=== PATIENT | male | born 1960 | race African-American/Black ===

== ENCOUNTER 2018-05-25 22:50 | Inpatient (IN) | payer MEDICARE, MEDICAID ==
[~2018-05-25] VITALS: Ht 174 cm; Wt 106.6 kg
[2018-05-26] MEDS ORDERED: LORAZEPAM 0.5 MG TABLET PO PRN (07:30)
[2018-05-26] MEDS ORDERED: MAG HYDROX/AL HYDROX/SIMETH 30 ML UDC PO PRN (07:30)
[2018-05-26] MEDS ORDERED: MAGNESIUM HYDROXIDE 30 ML UDC PO PRN (07:30)
[2018-05-26 08:00] VITALS: BP 112/79
[2018-05-26] MEDS: ACETAMINOPHEN 325 MG TABLET PO PRN ×2 (08:52→20:31)
--- NOTE | 2018-05-26 08:52 | NUR ---
NURSING NOTE: PT C/O PAIN ON HIS BACK AND LEFT LEG SCIATIC NERVE PAIN, 8/10 PAIN. ADMINISTERED TYLENOL 650MG PO PER MD ORDER. WILL CONTINUE TO MONITOR.
[2018-05-26 09:08] LABS: ALBUMIN 3.9 g/dL (3.4-5.0); BILIRUBIN,TOTAL 0.6 mg/dL (0.2-1.0); CALCIUM, SERUM 8.3 mg/dL (8.5-10.1); CREATININE 0.8 mg/dL (0.6-1.3); POTASSIUM 4.1 mmol/L (3.5-5.1); TOTAL PROTEIN, SERUM 7.8 g/dL (6.4-8.2)
--- NOTE | 2018-05-26 09:30 | NUR ---
NURSING ADMISSION NOTE: PT WAS ADMITTED TODAY FROM [facility] ON 5150 DTS. PER HOLD, "UPON FACE TO FACE CONTACT PT REPORTED FEELING SAD, HELPLESS, HOPELESS, AND THAT HIS LIFE IS NOT WORTH LIVING. PT STATED 'I JUST DON'T CARE ABOUT LIVING ANYMORE I WAS JUST THINKING ABOUT OVERDOSING ON PILLS'/ DUE TO PT'S PRESENTATION AND ENDORSEMENT OF SI WITH A PLAN PT MEETS CRITERIA FOR 5150 DTS. PT ALSO REPORTED HIS SI HAS BEEN FOR THE PAST TWO DAYS AND THAT HE WAS HAVING SI TODAY". PT IS A&OX4, CALM, COOPERATIVE, PLEASANT, FLAT AFFECT, DEPRESSED MOOD, ISOLATIVE, GUARDED, DENIES SI/HI AT THIS TIME. VS: 112/79, 90, 20, 94%RA, 98.6, 7/10 PAIN TO LOWER AND UPPER BACK. PT WAS MEDICATED WITH TYLENOL 650MG PO PER MD ORDER. SKIN INTACT. PT WAS COOPERATIVE WITH ADMISSION PROCESS AND HAS SIGNED ALL PAPERWORK. DR. BRINK AND DR. ALVAREZ HAVE BEEN NOTIFIED OF PTS ADMISSION AND ORDERS WERE OBTAINED. WILL CONTINUE TO MONITOR Q15 MINS FOR SAFETY AND BEHAVIOR.
[2018-05-26] MEDS ORDERED: SIMV20TA6 PO (10:06)
[2018-05-26] MEDS ORDERED: CARI350T27 PO (10:06)
[2018-05-26] MEDS ORDERED: BENZ1TAB7 PO ×2 (10:06)
[2018-05-26] MEDS ORDERED: CLOZ100T32 PO (10:06)
[2018-05-26] MEDS ORDERED: CLOZ25TA4 PO (10:06)
[2018-05-26] MEDS ORDERED: TRAM50TA2 PO (10:09)
[2018-05-26] MEDS ORDERED: FLUO-119 PO (10:09)
[2018-05-26] MEDS ORDERED: RIVA10TA PO (10:09)
[2018-05-26] MEDS ORDERED: BACL10TA PO (10:09)
--- NOTE | 2018-05-26 11:59 | NUR ---
RICHA called the pt's mother, Jolene ([phone]), and attempted to leave a voicemail for her but the pt's mother's mailbox was full. RICHA will attempt to make another call at another time.
--- NOTE | 2018-05-26 12:39 | NUR ---
Initial Discharge Plan: Pt currently resides at a home located at [address] [place] [address]; ([phone]) with his mother. Per pt, he would like to return home once he is stable. SW will work with the pt and the MD regarding appropriate discharge planning. SW will form a safe and proper discharge.
[2018-05-26] MEDS: CARISOPRODOL 350 MG TABLET PO SCH ×2 (13:18→17:06)
[2018-05-26 16:00] VITALS: BP 160/79
[2018-05-26] MEDS: SIMVASTATIN 20 MG TABLET PO SCH (17:06)
[2018-05-26] MEDS: RIVAROXABAN 10 MG TABLET PO SCH (17:07)
[2018-05-26 17:46] LABS: BASOPHILS # (AUTO) 0.1 /CMM (0.0-0.2); BASOPHILS % (AUTO) 2.1 % (0.0-2.0); HEMATOCRIT 46 % (39-51); HEMOGLOBIN 14.6 g/dL (13.5-17.5); LYMPHOCYTES # (AUTO) 1.5 /CMM (0.8-4.8); LYMPHOCYTES % (AUTO) 23.1 % (20.0-44.0); MEAN CORPUSCULAR HGB CONC 32 g/dl (31.0-36.0); MEAN CORPUSCULAR VOLUME 84 fL (80-96); MONOCYTES # (AUTO) 0.5 /CMM (0.1-1.30); MONOCYTES % (AUTO) 7.3 % (2.0-12.0); NEUTROPHILS # (AUTO) 4.3 /CMM (1.8-8.9); NEUTROPHILS % (AUTO) 64.5 % (43.0-81.0); PLATELET COUNT (AUTO) 191 /CMM (150-450); RED BLOOD CELL COUNT(AUTO) 5.48 MIL/uL (4.5-6.0); WHITE BLOOD COUNT (AUTO) 6.6 K/uL (4.3-11.0)
--- NOTE | 2018-05-26 18:04 | NUR ---
NURSING NOTE: PT IN THE HALLWAY WALKING WITH HIS WALKER, PT ALL OF A SUDDEN LOST HIS BALANCE AND FELL TO THE FLOOR BUT DID NOT HIT HIS HEAD. IT SEEMED IF HIS LEFT LEG GAVE OUT AND PT COULD NOT HOLD HIMSELF UP. VS:116/73, 112, 18, 100%RA, NO C/O PAIN FROM THE FALL. WILL CONTINUE TO MONITOR FOR SAFETY.
--- NOTE | 2018-05-26 18:30 | NUR ---
NURSING NOTE: ORTHOSTATICS DONE: LAYIN/43, 109; SITTING 110/80, 87; STANDING 110/87, 56. DR. ALVAREZ HAS BEEN NOTIFIED OF PTS FALL AND WILL ADJUST PT'S MEDICATION. PT'S MOTHER KALEN HAS BEEN NOTIFIED OF PT'S FALL WELL. INCIDENT REPORT WAS DONE AND NURSING [place] CLERK WAS NOTIFIED WELL. PT IS CURRENTLY LAYING IN HIS BED, STATING "I'M DOING OKAY, NO PAIN FROM THE FALL" PER PT HE HAS HAD SIMILAR EPISODES WHILE AT HOME. WILL CONTINUE TO MONITOR FOR SAFETY.
[2018-05-26 20:29] VITALS: BP 109/75
[2018-05-26] MEDS ORDERED: CLOZAPINE 100 MG TABLET ONE (21:39)
--- NOTE | 2018-05-26 21:39 | NUR ---
GPS RN NOTES: PT. NIGHT MED CLOZARIL DOSE WAS 250 MG AND GPS HAS NOT FULL DOSE IN STOCK , THEN CLOZARIL 200 MG TOOK FROM MED CALVIN 3 WITH CHARGE NURSE ANGELA , AND CLOZARIL 100 MG FROM GPS AND 50 MG WASTE , PT. MEDS GIVEN ON TIME.
[2018-05-26] MEDS: CLOZAPINE 100 MG TABLET PO SCH (21:51)
[2018-05-26] MEDS: BENZTROPINE MESYLATE (1 MG) 1 MG TABLET PO SCH (21:51)
[2018-05-27 07:20] LABS: BASOPHILS % (AUTO) 0.6 % (0.0-2.0); EOSINOPHILS % (AUTO) 2.6 % (0.0-6.0); HEMATOCRIT 41 % (39-51); HEMOGLOBIN 13.2 g/dL (13.5-17.5); LYMPHOCYTES # (AUTO) 1.4 /CMM (0.8-4.8); LYMPHOCYTES % (AUTO) 26.1 % (20.0-44.0); MEAN CORPUSCULAR HGB CONC 32 g/dl (31.0-36.0); MEAN CORPUSCULAR VOLUME 82 fL (80-96); MONOCYTES # (AUTO) 0.5 /CMM (0.1-1.30); NEUTROPHILS # (AUTO) 3.4 /CMM (1.8-8.9); NEUTROPHILS % (AUTO) 61.7 % (43.0-81.0); PLATELET COUNT (AUTO) 179 /CMM (150-450); RED BLOOD CELL COUNT(AUTO) 5.03 MIL/uL (4.5-6.0); WHITE BLOOD COUNT (AUTO) 5.5 K/uL (4.3-11.0)
[2018-05-27 07:52] LABS: CALCIUM, SERUM 8.6 mg/dL (8.5-10.1); CREATININE 0.8 mg/dL (0.6-1.3); MAGNESIUM 2.3 mg/dL (1.8-2.4); POTASSIUM 4.1 mmol/L (3.5-5.1)
[2018-05-27 08:00] VITALS: BP 115/76
[2018-05-27 08:04] LABS: THYROID STIMULATING HORMONE 0.682 uIU/mL (0.358-3.74)
[2018-05-27] MEDS: BENZTROPINE MESYLATE (1 MG) 1 MG TABLET PO SCH ×2 (08:59→21:02)
[2018-05-27] MEDS: BACLOFEN (10 MG) 10 MG TABLET PO SCH (08:59)
[2018-05-27] MEDS: FLUOXETINE HCL 20 MG CAPSULE PO SCH (08:59)
[2018-05-27] MEDS: CLOZAPINE 100 MG TABLET PO SCH ×2 (09:13→21:02)
[2018-05-27] MEDS: CARISOPRODOL 350 MG TABLET PO PRN ×2 (13:56→20:39)
--- NOTE | 2018-05-27 14:02 | NUR ---
GPS/RN-NOTES PATIENT REQUESTING SOMA FOR MUSCLE PAIN. SOMA 350MG P.O GIVEN PRN ORDER.
--- NOTE | 2018-05-27 14:50 | NUR ---
Group note: Pt attended a group session on 05/27/18 at 11AM discussing the topic of what their goals are for when they are in the hospital and once they are discharged. S: Pt stated, I want to go home and give life another good try. I want to be able to get out of my head and learn to seek more support when I start to feel myself go down. O: Pt was present during the group session and was cooperative. Pt appeared to be in a euthymic mood and presented with a calm affect. Pt maintained appropriate eye contact and his tone of voice appeared to be very calm and pleasant throughout the group. A: Pt understood that he needs to talk to his mother and lean on her for support because she has always been there for him. He realized that he cannot keep things to himself because then he loses control and ends up in the hospital. P: Pt will continue milieu treatment and medication stabilization.
[2018-05-27 16:00] VITALS: BP 117/78
[2018-05-27] MEDS: RIVAROXABAN 10 MG TABLET PO SCH (16:14)
[2018-05-27] MEDS: SIMVASTATIN 20 MG TABLET PO SCH (17:57)
[2018-05-27 20:21] VITALS: BP 105/62
--- NOTE | 2018-05-27 20:40 | NUR ---
C/O BACK PAIN, SOME 350 MG TAB PO GIVEN.
[2018-05-27] MEDS: TEMAZEPAM 7.5 MG CAPSULE PO PRN (20:41)
--- NOTE | 2018-05-27 20:42 | NUR ---
RESTORIL 7.5 MG CAP PO GIVEN FOR SLEEP.
[2018-05-28 08:00] VITALS: BP 100/59
[2018-05-28] MEDS: CLOZAPINE 100 MG TABLET PO SCH ×2 (08:33→20:43)
[2018-05-28] MEDS: BACLOFEN (10 MG) 10 MG TABLET PO SCH (08:33)
[2018-05-28] MEDS: FLUOXETINE HCL 20 MG CAPSULE PO SCH (08:33)
[2018-05-28] MEDS: BENZTROPINE MESYLATE (1 MG) 1 MG TABLET PO SCH ×2 (08:33→20:43)
[2018-05-28] MEDS: CARISOPRODOL 350 MG TABLET PO PRN (13:40)
--- NOTE | 2018-05-28 13:42 | NUR ---
GPS/RN-NOTES PATIENT C/O MUSCLE SPASM AND REQUESTING SOMA . SOMA 350MG P.O GIVEN PRN ORDER.
--- NOTE | 2018-05-28 15:44 | NUR ---
RICHA called the pt's mother, Jolene ([phone]), and spoke to her about the pt's initial discharge plan and discussed his recent state and the medications that he is on. RICHA stated that she would assist in finding a therapist for the pt. RICHA also informed her that she keep her updated in terms of the discharge.
--- NOTE | 2018-05-28 15:57 | NUR ---
SW spoke to the pt and he stated that he has been hearing voices in his head and the left side of his body is in pain. SW provided him with some coping mechanisms as well as refiguring his thoughts. SW asked him to remain in the present and counter what the voices are saying in his head out loud. Then the SW informed his nurse that he is in pain and she provided him with a medication.
[2018-05-28 16:00] VITALS: BP 152/85
[2018-05-28] MEDS: RIVAROXABAN 10 MG TABLET PO SCH (17:03)
[2018-05-28] MEDS: SIMVASTATIN 20 MG TABLET PO SCH (17:03)
[2018-05-28 20:00] VITALS: BP 123/67
[2018-05-28] MEDS: TEMAZEPAM 7.5 MG CAPSULE PO PRN (20:40)
--- NOTE | 2018-05-28 20:41 | NUR ---
TEMAZEPAM 7.5 MG CAP PO GIVEN FOR SLEEP PER HIS REQUEST. REQUESTED AERLY FOR HIS NIGHT MEDS AND GIVEN.
[2018-05-29 08:00] VITALS: BP 108/60
[2018-05-29] MEDS: CLOZAPINE 100 MG TABLET PO SCH ×2 (09:59→21:02)
[2018-05-29] MEDS: BACLOFEN (10 MG) 10 MG TABLET PO SCH (09:59)
[2018-05-29] MEDS: BENZTROPINE MESYLATE (1 MG) 1 MG TABLET PO SCH ×2 (09:59→21:02)
[2018-05-29] MEDS: FLUOXETINE HCL 20 MG CAPSULE PO SCH (09:59)
[2018-05-29] MEDS: CARISOPRODOL 350 MG TABLET PO PRN (13:24)
--- NOTE | 2018-05-29 13:26 | NUR ---
GPS/RN-NOTES PATIENT C/O MUSCLE SPASM 10/10 AND REQUESTING SOMA . SOMA 350MG P.O GIVEN PRN ORDER.
[2018-05-29 16:00] VITALS: BP 116/69
[2018-05-29] MEDS: SIMVASTATIN 20 MG TABLET PO SCH (17:02)
[2018-05-29] MEDS: RIVAROXABAN 10 MG TABLET PO SCH (17:03)
[2018-05-29 20:00] VITALS: BP 129/72
[2018-05-29] MEDS: TEMAZEPAM 7.5 MG CAPSULE PO PRN (20:39)
--- NOTE | 2018-05-29 20:40 | NUR ---
TEMAZEPAM 7.5 MG CAP PO GIVEN FOR SLEEP PER HIS REQUEST.
[2018-05-30 08:00] VITALS: BP 111/77
[2018-05-30] MEDS: BENZTROPINE MESYLATE (1 MG) 1 MG TABLET PO SCH ×2 (08:14→21:25)
[2018-05-30] MEDS: BACLOFEN (10 MG) 10 MG TABLET PO SCH (08:14)
[2018-05-30] MEDS: FLUOXETINE HCL 20 MG CAPSULE PO SCH (08:14)
[2018-05-30] MEDS: CLOZAPINE 100 MG TABLET PO SCH ×2 (08:15→21:26)
[2018-05-30 16:00] VITALS: BP 122/65
[2018-05-30] MEDS: RIVAROXABAN 10 MG TABLET PO SCH (17:06)
[2018-05-30] MEDS: SIMVASTATIN 20 MG TABLET PO SCH (17:06)
[2018-05-30] MEDS: ACETAMINOPHEN 325 MG TABLET PO PRN (19:20)
--- NOTE | 2018-05-30 19:20 | NUR ---
C/O PAIN ON BOTH SHOULDERS, TYLENOL 650 MG TAB PO GIVEN.
[2018-05-30 20:00] VITALS: BP 114/66
[2018-05-30] MEDS: TEMAZEPAM 7.5 MG CAPSULE PO PRN (21:26)
[2018-05-31 08:00] VITALS: BP 142/76
[2018-05-31] MEDS: BACLOFEN (10 MG) 10 MG TABLET PO SCH (08:38)
[2018-05-31] MEDS: BENZTROPINE MESYLATE (1 MG) 1 MG TABLET PO SCH ×2 (08:38→22:30)
[2018-05-31] MEDS: CLOZAPINE 100 MG TABLET PO SCH ×2 (08:38→22:29)
[2018-05-31] MEDS: FLUOXETINE HCL 20 MG CAPSULE PO SCH (08:38)
[2018-05-31] MEDS: HYDROCODONE/APAP 5/325MG 1 EACH TABLET PO PRN (14:45)
--- NOTE | 2018-05-31 14:45 | NUR ---
GPS RN NOTE: PT COMPLAINING OF LOWER BACK PAIN 09/09 [facility] [place] NOTIFIED WITH T.O. ORDER NORCO ORDER PLACED ,CARED OUT AND GIVEN TO PT.WILL CONTINUE MONITORING FOR SAFETY AND BEHAVIOR.
[2018-05-31 16:00] VITALS: BP 114/70
[2018-05-31] MEDS: SIMVASTATIN 20 MG TABLET PO SCH (17:02)
[2018-05-31] MEDS: RIVAROXABAN 10 MG TABLET PO SCH (17:02)
--- NOTE | 2018-05-31 19:30 | NUR ---
GPS RN NOTE, RECEIVED PATIENT AWAKE AND IN ROOM NO S/S OR COMPLAINTS OF PAIN AT THIS TIME. PATIENT IS DISPLAYING NO S/S OF APPARENT DISTRESS AT THIS TIME. PATIENT BREATHING IS UNLABORED WITH EQUAL RISE AND FALL OF THE CHEST. PATIENT IS ALERT AND ORIENTED X 3 ON ROOM AIR WITH A SPO2 OF 97%. PATIENT IS MED COMPLIANT, DISORGANIZED, ANXIOUS, LABILE, COOPERATIVE, AND NEEDS REORIENTATION. PATIENT DENIES SUICIDE AND HOMICIDAL IDEATIONS AT THIS TIME. PATIENT ASSISTED WITH TURNING AND REPOSITIONING Q2HR AND PRN FOR COMFORT AND CIRCULATION. PATIENT HAS NO NEEDS AT THIS TIME. PATIENT EDUCATED ON THE USE OF THE CALL JAMES. PATIENT BED SIDE RAILS ARE UP X 2 FOR SAFETY, BED IS LOCKED AND LOW. WILL CONTINUE TO MONITOR AND MAINTAIN SAFETY Q15 MIN WITH THE HELP OF STAFF.
[2018-05-31 21:17] VITALS: BP 116/63
[2018-05-31] MEDS ORDERED: CLOZAPINE 100 MG TABLET ONE (22:26)
[2018-06-01] MEDS: HYDROCODONE/APAP 5/325MG 1 EACH TABLET PO PRN ×3 (06:31→21:54)
--- NOTE | 2018-06-01 06:33 | NUR ---
GPS RN NOTE, PATIENT HAS COMPLAINT OF UPPER AND LOWER BACK PAIN AT 7 OUT 10 ON THE PAIN SCALE AND IS REQUESTING NORCO AT THIS TIME. PATIENT VITAL SIGNS ARE STABLE. GAVE NORCO 5-325 1 TAB PO Q6 HR PRN ORDERED. WILL REASSESS FOR PAIN AND I WILL CONTINUE TO MONITOR THIS PATIENT.
[2018-06-01 08:00] VITALS: BP 115/66
[2018-06-01] MEDS: BACLOFEN (10 MG) 10 MG TABLET PO SCH (08:51)
[2018-06-01] MEDS: FLUOXETINE HCL 20 MG CAPSULE PO SCH (08:51)
[2018-06-01] MEDS: BENZTROPINE MESYLATE (1 MG) 1 MG TABLET PO SCH ×2 (08:51→21:59)
[2018-06-01] MEDS: CLOZAPINE 100 MG TABLET PO SCH ×2 (08:51→22:03)
--- NOTE | 2018-06-01 15:08 | NUR ---
GPS RN NOTE: PT COMPLAINING OF LOWER BACK PAIN NORCO 5/325 GIVEN .WILL CONTINUE MONITORING FOR SAFETY AND BEHAVIOR.
[2018-06-01 16:00] VITALS: BP 136/73
[2018-06-01] MEDS: RIVAROXABAN 10 MG TABLET PO SCH (16:46)
[2018-06-01] MEDS: SIMVASTATIN 20 MG TABLET PO SCH (17:09)
[2018-06-01 20:52] VITALS: BP 123/63
--- NOTE | 2018-06-01 21:34 | NUR ---
OFFERED SLEEPING PILL, PATIENT REFUSED.
[2018-06-01] MEDS: TEMAZEPAM 7.5 MG CAPSULE PO PRN (21:55)
--- NOTE | 2018-06-02 02:00 | NUR ---
GPS RN NOTE RECEIVED PATIENT SLEEPING AND IN ROOM. PATIENT IS DISPLAYING NO S/S OF APPARENT DISTRESS AT THIS TIME. PATIENT BREATHING IS UNLABORED WITH SYMMETRICAL RISE AND FALL OF THE CHEST.PATIENT ASSISTED WITH TURNING AND REPOSITIONING Q2HR AND PRN FOR COMFORT AND CIRCULATION. PATIENT HAS NO NEEDS AT THIS TIME. PATIENT EDUCATED ON THE USE OF THE CALL JAMES. PATIENT BED SIDE RAILS ARE UP X 2 FOR SAFETY, BED IS LOCKED AND LOW. WILL CONTINUE TO MONITOR AND MAINTAIN SAFETY Q15 MIN WITH THE HELP OF STAFF.
[2018-06-02 08:00] VITALS: BP 115/59
[2018-06-02] MEDS: FLUOXETINE HCL 20 MG CAPSULE PO SCH (08:45)
[2018-06-02] MEDS: BENZTROPINE MESYLATE (1 MG) 1 MG TABLET PO SCH ×2 (08:45→22:43)
[2018-06-02] MEDS: HYDROCODONE/APAP 5/325MG 1 EACH TABLET PO PRN ×2 (08:46→21:39)
[2018-06-02] MEDS: CLOZAPINE 100 MG TABLET PO SCH ×2 (08:46→22:44)
[2018-06-02] MEDS: BACLOFEN (10 MG) 10 MG TABLET PO SCH (08:46)
--- NOTE | 2018-06-02 08:46 | NUR ---
NURSING NOTE: PT C/O BACK AND SHOULDER PAIN, 8/10 PAIN. REQUESTING PAIN MEDICATION. ADMINISTERED NORCO 5/325MG PO PER MD ORDER. VS STABLE. WILL CONTINUE TO MONITOR.
[2018-06-02 09:56] LABS: BASOPHILS # (AUTO) 0.1 /CMM (0.0-0.2); EOSINOPHILS % (AUTO) 1.7 % (0.0-6.0); HEMATOCRIT 43 % (39-51); HEMOGLOBIN 13.4 g/dL (13.5-17.5); LYMPHOCYTES # (AUTO) 1.3 /CMM (0.8-4.8); MEAN CORPUSCULAR HGB CONC 32 g/dl (31.0-36.0); MEAN CORPUSCULAR VOLUME 83 fL (80-96); MONOCYTES # (AUTO) 0.5 /CMM (0.1-1.30); MONOCYTES % (AUTO) 6.5 % (2.0-12.0); NEUTROPHILS # (AUTO) 5.4 /CMM (1.8-8.9); NEUTROPHILS % (AUTO) 72.8 % (43.0-81.0); PLATELET COUNT (AUTO) 180 /CMM (150-450); RED BLOOD CELL COUNT(AUTO) 5.15 MIL/uL (4.5-6.0); WHITE BLOOD COUNT (AUTO) 7.4 K/uL (4.3-11.0)
[2018-06-02 10:10] LABS: CALCIUM, SERUM 8.3 mg/dL (8.5-10.1); CREATININE 0.7 mg/dL (0.6-1.3); POTASSIUM 4.2 mmol/L (3.5-5.1)
[2018-06-02 13:36] LABS: APPEARANCE,URINE CLEAR (CLEAR); BILIRUBIN,URINE NEGATIVE (NEGATIVE); BLOOD, URINE TRACE-INTA Ery/uL (NEGATIVE); COLOR,URINE YELLOW (YELLOW); KETONES,URINE NEGATIVE (NEGATIVE); LEUKOCYTE ESTERASE ,URINE NEGATIVE (NEGATIVE); NITRITE, URINE NEGATIVE (NEGATIVE); PROTEIN,URINE NEGATIVE (NEGATIVE); UGLUCOSE NEGATIVE (NEGATIVE); UROBILINOGEN,URINE 0.2 EU/dL (0.2)
[2018-06-02 13:42] LABS: WBC,URINE 0-2 /HPF (0-3)
[2018-06-02 13:43] LABS: BACTERIA,URINE Rare /HPF (None Seen); SQUAMOUS EPITHELIAL CELL,UR Rare /HPF (None Seen)
--- NOTE | 2018-06-02 14:26 | NUR ---
RICHA spoke to the pt in his room and informed him that the pt is going to be discharged home tomorrow. RICHA stated that she would provide him with therapist referrals upon discharge and coordinate the plan with the pt's mother.
--- NOTE | 2018-06-02 14:28 | NUR ---
RICHA called the pt's mother, Jolene ([phone]), and left a message on her voicemail stating that the pt is going to be discharged home tomorrow and that the SW would like to coordinate the plan with the pt's mother.
--- NOTE | 2018-06-02 15:06 | NUR ---
RICHA called the pt's mother, Jolene ([phone]), at an alternative number that the pt provided. RICHA informed her that the pt is going to be discharged the following day and she stated that she has no transportation to pick the pt up. She stated that she would call her family members and see if anyone would be available. She will call the SW back as soon as she can.
--- NOTE | 2018-06-02 15:29 | NUR ---
Jolene ([phone]), pt's mother, called the SW and stated that she would be able to come pick the pt up around 11AM tomorrow.
[2018-06-02 16:00] VITALS: BP 126/60
[2018-06-02] MEDS: SIMVASTATIN 20 MG TABLET PO SCH (17:12)
[2018-06-02] MEDS: RIVAROXABAN 10 MG TABLET PO SCH (17:12)
[2018-06-02 19:56] VITALS: BP 113/68
--- NOTE | 2018-06-02 21:39 | NUR ---
GPS RN NOTE, PATIENT HAS A COMPLAINT OF LOWER BACK PAIN AT 6 OUT OF 10 ON THE PAIN SCALE AND IS REQUESTING NORCO AT THIS TIME. PATIENT VITAL SIGNS ARE STABLE. GAVE NORCO 5-325 1 TAB PO Q6HR PRN ORDERED. WILL REASSESS FOR PAIN AND I WILL CONTINUE TO MONITOR THIS PATIENT.
[2018-06-02] MEDS ORDERED: CLOZAPINE 100 MG TABLET ONE (22:38)
[2018-06-03 08:00] VITALS: BP 137/57
[2018-06-03] MEDS: BENZTROPINE MESYLATE (1 MG) 1 MG TABLET PO SCH (09:02)
[2018-06-03] MEDS: FLUOXETINE HCL 20 MG CAPSULE PO SCH (09:03)
[2018-06-03] MEDS: CLOZAPINE 100 MG TABLET PO SCH (09:03)
[2018-06-03] MEDS: BACLOFEN (10 MG) 10 MG TABLET PO SCH (09:03)
--- NOTE | 2018-06-03 11:27 | NUR ---
GPS DIRECTOR VACCINE NOTE: PATIENT DISCHARGE [facility] LOCATED AT [address] [place] [id number]. PECKED UP BY PTS MOTHER, KALEN. PATIENT A&OX4 , AMBULATORY WITH CANE , SELF CARE, IN STABLE CONDITION, PATIENT DENIES SI/HI, PT STATED"IM NOT DEPRESSED". PATIENT VSS, NO S/S DISTRESS NOTED. EXIT CARE DONE , PRINTED, SIGN, AND GIVEN TO PATIENT. PRESCRIPTIONS EXPLAIN AND GIVEN TO PT . PT VERBALIZED UNDERSTANDING MEDICATIONS MGMT TO FOLLOW UP WITH MD COMPLY WITH MEDICATIONS .ALL BELONGING RETURNED TO PT , SKIN INTACT.
--- NOTE | 2018-06-03 13:52 | NUR ---
RICHA faxed the appropriate discharge paperwork to the pts psychiatrist, Dr. Lopez, to the fax number: [phone].
--- NOTE | 2018-06-03 13:59 | NUR ---
Discharge Note: Pt was discharged to his home located at [address] [place] [id number]. Pt was picked up by his mother, Jolene ([phone]), at 11AM. Upon discharge, the pt appeared to be in a euthymic mood and presented with a calm affect. The pt denied both suicidal and homicidal ideation as well as auditory and visual hallucinations. Pt was provided with around 30 pages of therapist referrals in his area. SW attempted to make an appointment for him but information was requested during the intake that the pt would have to answer. Pt will follow up with his psychiatrist, Dr. Lopez, located at [address] [place] [address]; and has an appointment with him on 06/24/18 at 10AM. Pt will also be under the care of his joint filler, Dr. Han, located at [address] [place] [id number]; .
== END 2018-06-03 11:20 | disposition home or self-care (01) | DRG 885 ==
LOC: GPS 05-26 06:33
PROVIDERS: ADMIT Psychiatry & Neurology Psychiatry; ATTEND Psychiatry & Neurology Psychiatry
DX: F31.5 Bipolar disorder, current episode depressed, severe, with psychotic features (principal); F23 Brief psychotic disorder; I25.10 Atherosclerotic heart disease of native coronary artery without angina pectoris; F41.9 Anxiety disorder, unspecified; G47.33 Obstructive sleep apnea (adult) (pediatric); Z87.891 Personal history of nicotine dependence; Z83.3 Family history of diabetes mellitus; G89.29 Other chronic pain; J98.4 Other disorders of lung; H50.9 Unspecified strabismus; I25.2 Old myocardial infarction; Z96.89 Presence of other specified functional implants
CPT/HCPCS: 36415; 80048-TC; 80053-TC; 80061-TC; 81000-TC; 83735-TC; 84100-TC; 84443-TC; 85025-TC; 87081-TC